=== PATIENT | female | born 1995 | race Caucasian/White ===

== ENCOUNTER 2022-01-13 05:21 | Inpatient (IN) | payer OTHER ==
[~2022-01-13] VITALS: Ht 165.1 cm; Wt 99.8 kg
[~2022-01-13 05:21] MED LIST: COLACE 100MG C100 MG PO; FOLIC ACID 1 MG1 MG PO; IBUPROFEN600 MG PO; LORTAB 5-325 M1 EACH PO; PRENATAL 19 TA1 EAC1 PO
[2022-01-13 06:44] LABS: HEMOGLOBIN 10.3 gm/dl (12.3-15.3); RED BLOOD COUNT 4.03 M/UL (4.00-5.10); WHITE BLOOD COUNT 11.2 K/UL (4.5-11.0)
[2022-01-13] MEDS ORDERED: IBUPROFEN600 MG PO (16:49)
[2022-01-13] MEDS ORDERED: DOCUSATE SODIU100 MG PO (16:49)
[2022-01-14 06:49] LABS: HEMOGLOBIN 10.4 gm/dl (12.3-15.3)
== END 2022-01-14 17:14 | disposition home or self-care (01) | DRG 807 ==
LOC: OB 05:21
PROVIDERS: Obstetrics & Gynecology; ADMIT Obstetrics & Gynecology
PROC: 10E0XZZ Delivery of Products of Conception, External Approach (ICD-10-PCS; principal; 2022-01-13)
PROC: 10907ZC Drainage of Amniotic Fluid, Therapeutic from Products of Conception, Via Natural or Artificial Opening (ICD-10-PCS; 2022-01-13)
PROC: 4A1HXCZ Monitoring of Products of Conception, Cardiac Rate, External Approach (ICD-10-PCS; 2022-01-13)
PROC: 3E033VJ Introduction of Other Hormone into Peripheral Vein, Percutaneous Approach (ICD-10-PCS; 2022-01-13)
PROC: 0HQ9XZZ Repair Perineum Skin, External Approach (ICD-10-PCS; 2022-01-13)
DX: O70.0 First degree perineal laceration during delivery (principal); Z37.0 Single live birth; Z3A.39 39 weeks gestation of pregnancy; Z28.310 Unvaccinated for COVID-19; Z20.822 Contact with and (suspected) exposure to COVID-19; Z80.0 Family history of malignant neoplasm of digestive organs; Z83.3 Family history of diabetes mellitus; Z82.49 Family history of ischemic heart disease and other diseases of the circulatory system; Z80.1 Family history of malignant neoplasm of trachea, bronchus and lung; Z84.89 Family history of other specified conditions
CPT/HCPCS: 36415; 82800; 85014; 85018; 85025; J2590; J3430

== ENCOUNTER 2022-02-28 09:05 | Emergency (ER) | payer OTHER ==
[~2022-02-28] VITALS: Ht 165.1 cm; Wt 86.6 kg
[~2022-02-28 09:05] MED LIST changes: +DOCUSATE SODIU100 MG PO
[2022-02-28 09:42] LABS: HEMOGLOBIN 11.9 gm/dl (12.3-15.3); RED BLOOD COUNT 4.6 M/UL (4.00-5.10); WHITE BLOOD COUNT 7.3 K/UL (4.5-11.0)
[2022-02-28 10:11] LABS: BUN/CREATININE RATIO 16 (0-10)
== END 2022-02-28 17:15 | disposition home or self-care (01) ==
LOC: ER1 09:05
PROVIDERS: Physician Assistant
DX: K80.70 Calculus of gallbladder and bile duct without cholecystitis without obstruction (principal)
CPT/HCPCS: 71045; 80053; 81001; 82550; 82553; 83690; 84484; 84703; 85025; 87086; 93005; 96374; 99285; J2270; J2405; Q9967